=== PATIENT | female | born 2000 | race Caucasian/White ===

== ENCOUNTER 2022-10-29 20:08 | Inpatient (IN) | payer SELFPAY ==
[2022-10-29 20:43] VITALS: BP 134/78; PULSE 91; RESP 17; TEMP 37; O2SAT 99; BMI 29.6
--- NOTE | 2022-10-29 20:51 | ED_ITS ---
HPI - Psych General Chief Complaint: Psychiatric Symptoms <Alf Woodard MD - Last Filed: 10/31/22 06:35> Stated Complaint: CRISIS <Alf Woodard MD - Last Filed: 10/31/22 06:35> Time Seen by Provider: 10/29/22 20:40 <Alf Woodard MD - Last Filed: 10/31/22 06:35> Source: patient and other ([facility] assessment) <Alf Woodard MD - Last Filed: 10/31/22 06:35> Mode of arrival: ambulatory <Alf Woodard MD - Last Filed: 10/31/22 06:35> Limitations: other (Patient's paranoid) <Alf Woodard MD - Last Filed: 10/31/22 06:35> History of Present Illness HPI Narrative: 22-year-old female who was evaluated by [facility] as an outpatient for paranoid ideation and auditory hallucinations who was sent to the emergency department on a Section 12. The patient told me she was feeling sick but could not specify why. She told me she was not able to sleep. She told me that a man would not leave her alone in this man's name was Jian. In reviewing the [facility] assessment the patient be admitted to having auditory hallucinations telling her to ?, , ?. The patient appeared to be manic and was struggling to focus on the assessment at the time. The patient reported that she was stressed secondary to work issues. She reported being sad and wanting to cry. She reported that she was acting crazy. According to the assessment, mom reported patient having episodes of orlin not sleeping. The 1st episode was during a vacation with friends and a and then her boyfriend cheated on her in March of 2022. She apparently has been struggling since then screaming and yelling wanting to fight. The mother reported that on Friday, she sat on the floor and cried. She reported that mom's per hours are hurting her and she sent her mother over 107 text messages. <Alf Woodard MD - Last Filed: 10/31/22 06:35> Related Data Home Medications: Home Medications Medication Instructions Recorded Confirmed No Known Home Meds 10/29/22 10/29/22 <Alf Woodard MD - Last Filed: 10/31/22 06:35> Allergies/Adverse Reactions: Allergies Allergy/AdvReac Type Severity Reaction Status Date / Time No Known Allergies Allergy Verified 10/29/22 20:40 <Alf Woodard MD - Last Filed: 10/31/22 06:35> Review of Systems Review of Systems: Yes all other systems are reviewed and are negative <Alf Woodard MD - Last Filed: 10/31/22 06:35> [facility] Past Medical History [facility] Narrative: Past medical history: None. Past surgical history: None. Social history: Patient denies tobacco use. She states she occasionally drinks alcohol. She does smoke 1 marijuana joint daily. <Alf Woodard MD - Last Filed: 10/31/22 06:35> Social History Social History: Social History Household Members Other:: MOM/DAD AND 3 SIBLINGS Housing: House Do you presently have visiting nurse or other home services: No Patient Tobacco Use Status: Never used Tobacco Smoked in Last 30 Days: No Patient Interested in Nicotine Replacement: No Use of substances other than those prescribed or required for medical reasons: Yes Substance Use Type: Marijuana Substance Use Frequency: Daily Last Used Substance: Days (ago) Currently Displaying Signs/Symptoms of Drug Intoxication Withdrawal: No Any prior treatment program specific to substance use: Yes Have you been hit, kicked, punched, or otherwise hurt by someone within the past year? If so, by whom?: No Do you feel safe in your current relationship?: No Current Relationship Is there a partner from a previous relationship who is making you feel unsafe now?: No Are you made to feel afraid or neglected: No Advance Directives: No Advance Directives Information Provided: No Do you have thoughts of harming others: None Do you have a plan to hurt others: No Plan Recently lost weight without trying: No Eating poorly because of decreased appetite: No Nutrition Risks: No Nutritional Risk Patient : No : No Poor oral hygiene: No <Alf Woodard MD - Last Filed: 10/31/22 06:35> Physical Exam Vital Signs: Vital Signs: Last Vital Signs Temp 97.8 F 10/30/22 20:49 Pulse 75 10/30/22 20:49 Resp 16 10/30/22 17:21 BP 110/69 10/30/22 20:49 Pulse Ox 100 10/30/22 20:49 O2 Del Method 10/30/22 20:49 BMI result Body Mass Index 29.6 <Alf Woodard MD - Last Filed: 10/31/22 06:35> Vital Signs: Last Vital Signs Temp 97.8 F 10/30/22 20:49 Pulse 75 10/30/22 20:49 Resp 16 10/30/22 17:21 BP 110/69 10/30/22 20:49 Pulse Ox 100 10/30/22 20:49 O2 Del Method 10/30/22 20:49 BMI result Body Mass Index 29.6 <Radha Villegas MD - Last Filed: 10/30/22 12:25> Const: Other: Awake, alert, female patient, she appears anxious, she is tearful, she told me that she is feeling like she is crazy <Alf Woodard MD - Last Filed: 10/31/22 06:35> HEENT: Head: Yes normal to inspection, Yes normocephalic and Yes atraumatic <Alf Woodard MD - Last Filed: 10/31/22 06:35> Ears: external ears normal <Alf Woodard MD - Last Filed: 10/31/22 06:35> General nose exam: Normal external nose present <Alf Woodard MD - Last Filed: 10/31/22 06:35> Face and sinus: Yes normal facial exam <Alf Woodard MD - Last Filed: 10/31/22 06:35> Mouth: Normal oral and palatal mucosa present <Alf Woodard MD - Last Filed: 10/31/22 06:35> Throat: Yes posterior oropharynx normal <Alf Woodard MD - Last Filed: 10/31/22 06:35> Eyes: General: appearance normal, both eyes and all related structures <Alf Woodard MD - Last Filed: 10/31/22 06:35> Pupils: Equal, round and reactive pupils present <Alf Woodard MD - Last Filed: 10/31/22 06:35> Neck: Neck: Yes normal visual inspection, Yes no lymphadenopathy, Yes trachea midline and Yes supple <Alf Woodard MD - Last Filed: 10/31/22 06:35> Chest: Chest palpation & inspection: normal inspection of the chest and normal palpation of entire chest wall <Alf Woodard MD - Last Filed: 10/31/22 06:35> Resp: Effort & Inspection: normal respiratory effort and able to speak in complete sentences <Alf Woodard MD - Last Filed: 10/31/22 06:35> Auscultation: clear to auscultation bilaterally <Alf Woodard MD - Last Filed: 10/31/22 06:35> Cardio: Rate: regular rate <Alf Woodard MD - Last Filed: 10/31/22 06:35> Rhythm: regular rhythm <Alf Woodard MD - Last Filed: 10/31/22 06:35> Heart sounds: S1 normal heart sound present, S2 normal heart sound present and no murmurs <Alf Woodard MD - Last Filed: 10/31/22 06:35> GI: Inspection: Yes normal to inspection <Alf Woodard MD - Last Filed: 10/31/22 06:35> Palpation (GI): Soft to palpation, nontender and no guarding <Alf Woodard MD - Last Filed: 10/31/22 06:35> Auscultation: normal bowel sounds <MD Andre Garcia Last Filed: 10/31/22 06:35> : General: Yes no CVA tenderness <MD Andre Garcia Last Filed: 10/31/22 06:35> Back/Spine/Pelvis: Back: no CVA tenderness <Alf Woodard MD - Last Filed: 10/31/22 06:35> Skin: General skin exam: no rashes or lesions noted <MD Andre Garcia Last Filed: 10/31/22 06:35> Neuro: Cranial nerves: Yes CN's II-XII intact bilaterally and Yes Equal, round and reactive pupils present <Alf Woodard MD - Last Filed: 10/31/22 06:35> Cognition (Neuro): normal cognition <Alf Woodard MD - Last Filed: 10/31/22 06:35> Motor exam (neuro): 5/5 motor strength present throughout <Alf Woodard MD - Last Filed: 10/31/22 06:35> Extrem: General: Yes normal to inspection <Alf Woodard MD - Last Filed: 10/31/22 06:35> Psych: Appearance: grossly normal <Alf Woodard MD - Last Filed: 10/31/22 06:35> Speech and movement: Normal speech and movement present <Alf Woodard MD - Last Filed: 10/31/22 06:35> Affect: Sad affect present and Anxious affect present <Alf Woodard MD - Last Filed: 10/31/22 06:35> Attitude: cooperative <Alf Woodard MD - Last Filed: 10/31/22 06:35> Thought content: suicidality, no homicidality and Hallucination(s) present auditory (Reported but states not currently having auditory hallucinations) <Alf Woodard MD - Last Filed: 10/31/22 06:35> Course Course Course Narrative: 22-year-old female who was sent to the emergency department on a Section 12 after being evaluated as an outpatient by [facility]. Patient reported having command auditory hallucination, being sad and depressed, not eating, not sleeping. Parents reported that the patient has not been well since March of 2022 when she broke up with her boyfriend her cheated on her. Since that time she has had episodes of orlin. Over the past 3 days the patient has not been sleeping and not been eating, she has been crying, she has been manic and is sent her mother over 107 text messages. The patient did appear to be anxious and sad, she was tearful when I evaluated her. I did order laboratory evaluation on the patient. The patient will be treated with Ativan 1 mg orally and Zyprexa 10 mg orally try to help her get some sleep. The patient is on a bed search and she will be placed and physician observation until an appropriate disposition can be determined. <Alf Woodard MD - Last Filed: 10/31/22 0 6:35> Reevaluation(s) Reevaluation #1: Continue physician observation, patient is bed search, patient did require medication restrained and on review vital signs is otherwise stable. <Radha Villegas MD - Last Filed: 10/30/22 12:25> Time: 12:24 <Radha Villegas MD - Last Filed: 10/30/22 12:25> Medications Administered Generic Name Dose Route Start Last Admin Trade Name Freq PRN Reason Stop Dose Admin Hydroxyzine HCl 25 mg 10/30/22 14:33 10/30/22 20:08 Hydroxyzine Hcl 25 Mg Tablet PO 25 mg Q6H PRN Administration Anxiety Trazodone HCl 50 mg 10/30/22 14:33 10/30/22 22:08 Trazodone Hcl 50 Mg Tablet PO 50 mg BEDTIME PRN Administration Insomnia Discontinued Medications Generic Name Dose Route Start Last Admin Trade Name Freq PRN Reason Stop Dose Admin Lorazepam 1 mg 10/29/22 20:52 10/29/22 21:11 Lorazepam 1 Mg Tablet PO 10/29/22 20:53 1 mg ONCE STA Administration Olanzapine 10 mg 10/29/22 22:04 10/29/22 22:07 Olanzapine 10 Mg Tablet PO 10/29/22 22:05 10 mg ONCE STA Administration Olanzapine 10 mg 10/30/22 00:14 10/30/22 00:20 Olanzapine 10 Mg Vial IM 10/30/22 00:15 10 mg STAT STA Administration <Alf Woodard MD - Last Filed: 10/31/22 06:35> Medications Administered Generic Name Dose Route Start Last Admin Trade Name Freq PRN Reason Stop Dose Admin Hydroxyzine HCl 25 mg 10/30/22 14:33 10/30/22 20:08 Hydroxyzine Hcl 25 Mg Tablet PO 25 mg Q6H PRN Administration Anxiety Trazodone HCl 50 mg 10/30/22 14:33 10/30/22 22:08 Trazodone Hcl 50 Mg Tablet PO 50 mg BEDTIME PRN Administration Insomnia Discontinued Medications Generic Name Dose Route Start Last Admin Trade Name Freq PRN Reason Stop Dose Admin Lorazepam 1 mg 10/29/22 20:52 10/29/22 21:11 Lorazepam 1 Mg Tablet PO 10/29/22 20:53 1 mg ONCE STA Administration Olanzapine 10 mg 10/29/22 22:04 10/29/22 22:07 Olanzapine 10 Mg Tablet PO 10/29/22 22:05 10 mg ONCE STA Administration Olanzapine 10 mg 10/30/22 00:14 10/30/22 00:20 Olanzapine 10 Mg Vial IM 10/30/22 00:15 10 mg STAT STA Administration <Radha Villegas MD - Last Filed: 10/30/22 12:25> Medical Decision Making Lab Data Result Diagrams: : 10/29/22 23:29 10/29/22 23:29 <Alf Woodard MD - Last Filed: 10/31/22 06:35> Labs: Lab Results 10/29/22 10/29/22 10/29/22 Range/Units 20:45 23:29 23:29 WBC 5.0 (4.8-10.8) X10*3/uL RBC 4.64 (4.20-5.50) X10*6/uL Hgb 13.7 (12.0-16.0) g/dl Hct 39.4 (37.0-47.0) % MCV 84.9 (80.0-98.0) fL MCH 29.5 (27.0-33.0) pg MCHC 34.8 (31.0-35.0) g/dl RDW 12.2 (11.0-16.0) % Plt Count 261 (160-400) X10*3/uL MPV 10.3 (9.4-12.3) fL Immature Gran % (Auto) 0.2 (0.0-0.4) % Neut % (Auto) 51.6 (45-73) % Lymph % (Auto) 39.2 (20-40) % Sullivan % (Auto) 8.4 (2-11) % Eos % (Auto) 0.4 (0-4) % Baso % (Auto) 0.2 (0-2) % Lymph # (Auto) 2.0 (1.2-4.9) X10*3/uL [place] # (Auto) 0.4 (0.1-1.2) X10*3/uL Eos # (Auto) 0.0 (0.0-0.4) X10*3/uL Baso # (Auto) 0.0 (0.0-0.2) X10*3/uL Abs Immat Gran (auto) 0.01 (0.00-0.03) X10*3/uL Absolute Neuts (auto) 2.6 (2.0-8.3) x10*3/uL Absolute Nucleated RBC 0.000 (0.0-0.012) X10*3/uL Nucleated RBC % (auto) 0.0 (0.0-0.2) /100WBC Smear Tech's Comments VERIFIED Sodium 140 (135-145) mmol/L Potassium 3.9 (3.3-5.1) mmol/L Chloride 108 (96-108) mmol/L Carbon Dioxide 21 L (22-29) mmol/L Anion Gap 15 (12-20) BUN 10 (9-16) mg/dL Creatinine 0.74 (0.5-1.4) mg/dL Estim Creat Clear Calc 126.2 Estimated GFR > 60 Random Glucose 99 (60-115) mg/dL Calcium 9.2 (8.4-10.2) mg/dL Total Bilirubin 0.4 (0.0-1.0) mg/dL AST 29 (5-31) U/L ALT 25 (0-31) U/L Alkaline Phosphatase 65 (39-117) U/L Total Protein 7.8 (6.5-8.0) g/dL Albumin 4.7 (3.5-5.0) g/dL TSH (0.32-4.0) uIU/mL Urine Color Urine Appearance Urine pH (5.0-9.0) Ur Specific [place] (1.005-1.025) Urine Protein (Neg-Trace) mg/dL Urine Glucose (UA) (Negative) mg/dL Urine Ketones (Negative) mg/dL Urine Blood (Negative) Urine Nitrite (Negative) Ur Leukocyte Esterase (Negative) Urine RBC (0-2) /HPF Urine WBC (0-5) /HPF Ur Squamous Epith Cells (0-2) /HPF Urine Bacteria (None Seen) Hyaline Casts (0-2) /LPF Urine Test (NEGATIVE) Salicylates < 5.0 L (15-30) mg/dL Urine Opiates Screen (Not Detect) Urine Fentanyl Screen (Not Detect) Acetaminophen < 1 (<30) mcg/mL Ur Barbiturates Screen (Not Detect) Ur Phencyclidine Scrn (Not Detect) Ur Amphetamines Screen (Not Detect) U Benzodiazepines Scrn (Not Detect) Urine Cocaine Screen (Not Detect) U Marijuana (THC) Screen (Not Detect) Ethyl Alcohol mg/dL COVID-19 ([facility]) Negative (Negative) COVID-19 Clin Com See Note 10/29/22 10/29/22 10/29/22 Range/Units 23:29 23:29 23:36 WBC (4.8-10.8) X10*3/uL RBC (4.20-5.50) X10*6/uL Hgb (12.0-16.0) g/dl Hct (37.0-47.0) % MCV (80.0-98.0) fL MCH (27.0-33.0) pg MCHC (31.0-35.0) g/dl RDW (11.0-16.0) % Plt Count (160-400) X10*3/uL MPV (9.4-12.3) fL Immature Gran % (Auto) (0.0-0.4) % Neut % (Auto) (45-73) % Lymph % (Auto) (20-40) % [place] % (Auto) (2-11) % Eos % (Auto) (0-4) % Baso % (Auto) (0-2) % Lymph # (Auto) (1.2-4.9) X10*3/uL [place] # (Auto) (0.1-1.2) X10*3/uL Eos # (Auto) (0.0-0.4) X10*3/uL Baso # (Auto) (0.0-0.2) X10*3/uL Abs Immat Gran (auto) (0.00-0.03) X10*3/uL Absolute Neuts (auto) (2.0-8.3) x10*3/uL Absolute Nucleated RBC (0.0-0.012) X10*3/uL Nucleated RBC % (auto) (0.0-0.2) /100WBC Smear Tech's Comments Sodium (135-145) mmol/L Potassium (3.3-5.1) mmol/L Chloride (96-108) mmol/L Carbon Dioxide (22-29) mmol/L Anion Gap (12-20) BUN (9-16) mg/dL Creatinine (0.5-1.4) mg/dL Estim Creat Clear Calc Estimated GFR Random Glucose (60-115) mg/dL Calcium (8.4-10.2) mg/dL Total Bilirubin (0.0-1.0) mg/dL AST (5-31) U/L ALT (0-31) U/L Alkaline Phosphatase (39-117) U/L Total Protein (6.5-8.0) g/dL Albumin (3.5-5.0) g/dL TSH 0.91 (0.32-4.0) uIU/mL Urine Color Yellow Urine Appearance Clear Urine pH 7.0 (5.0-9.0) Ur Specific [place] 1.010 (1.005-1.025) Urine Protein Negative (Neg-Trace) mg/dL Urine Glucose (UA) Negative (Negative) mg/dL Urine Ketones 15 (Negative) mg/dL Urine Blood Moderate (2+) H (Negative) Urine Nitrite Negative (Negative) Ur Leukocyte Esterase Moderate (2+) H (Negative) Urine RBC 0-2 (0-2) /HPF Urine WBC 11-20 H (0-5) /HPF Ur Squamous Epith Cells 3-5 (0-2) /HPF Urine Bacteria Trace (None Seen) Hyaline Casts 0-2 (0-2) /LPF Urine Test (NEGATIVE) Salicylates (15-30) mg/dL Urine Opiates Screen (Not Detect) Urine Fentanyl Screen (Not Detect) Acetaminophen (<30) mcg/mL Ur Barbiturates Screen (Not Detect) Ur Phencyclidine Scrn (Not Detect) Ur Amphetamines Screen (Not Detect) U Benzodiazepines Scrn (Not Detect) Urine Cocaine Screen (Not Detect) U Marijuana (THC) Screen (Not Detect) Ethyl Alcohol < 10 mg/dL COVID-19 ([facility]) (Negative) COVID-19 Clin Com 10/29/22 10/29/22 Range/Units 23:36 23:36 WBC (4.8-10.8) X10*3/uL RBC (4.20-5.50) X10*6/uL Hgb (12.0-16.0) g/dl Hct (37.0-47.0) % MCV (80.0-98.0) fL MCH (27.0-33.0) pg MCHC (31.0-35.0) g/dl RDW (11.0-16.0) % Plt Count (160-400) X10*3/uL MPV (9.4-12.3) fL Immature Gran % (Auto) (0.0-0.4) % Neut % (Auto) (45-73) % Lymph % (Auto) (20-40) % [place] % (Auto) (2-11) % Eos % (Auto) (0-4) % Baso % (Auto) (0-2) % Lymph # (Auto) (1.2-4.9) X10*3/uL [place] # (Auto) (0.1-1.2) X10*3/uL Eos # (Auto) (0.0-0.4) X10*3/uL Baso # (Auto) (0.0-0.2) X10*3/uL Abs Immat Gran (auto) (0.00-0.03) X10*3/uL Absolute Neuts (auto) (2.0-8.3) x10*3/uL Absolute Nucleated RBC (0.0-0.012) X10*3/uL Nucleated RBC % (auto) (0.0-0.2) /100WBC Smear Tech's Comments Sodium (135-145) mmol/L Potassium (3.3-5.1) mmol/L Chloride (96-108) mmol/L Carbon Dioxide (22-29) mmol/L Anion Gap (12-20) BUN (9-16) mg/dL Creatinine (0.5-1.4) mg/dL Estim Creat Clear Calc Estimated GFR Random Glucose (60-115) mg/dL Calcium (8.4-10.2) mg/dL Total Bilirubin (0.0-1.0) mg/dL AST (5-31) U/L ALT (0-31) U/L Alkaline Phosphatase (39-117) U/L Total Protein (6.5-8.0) g/dL Albumin (3.5-5.0) g/dL TSH (0.32-4.0) uIU/mL Urine Color Urine Appearance Urine pH (5.0-9.0) Ur Specific [place] (1.005-1.025) Urine Protein (Neg-Trace) mg/dL Urine Glucose (UA) (Negative) mg/dL Urine Ketones (Negative) mg/dL Urine Blood (Negative) Urine Nitrite (Negative) Ur Leukocyte Esterase (Negative) Urine RBC (0-2) /HPF Urine WBC (0-5) /HPF Ur Squamous Epith Cells (0-2) /HPF Urine Bacteria (None Seen) Hyaline Casts (0-2) /LPF Urine Test NEGATIVE (NEGATIVE) Salicylates (15-30) mg/dL Urine Opiates Screen Not Detected (Not Detect) Urine Fentanyl Screen Not Detected (Not Detect) Acetaminophen (<30) mcg/mL Ur Barbiturates Screen Not Detected (Not Detect) Ur Phencyclidine Scrn Not Detected (Not Detect) Ur Amphetamines Screen Not Detected (Not Detect) U Benzodiazepines Scrn Not Detected (Not Detect) Urine Cocaine Screen Not Detected (Not Detect) U Marijuana (THC) Screen POSITIVE H (Not Detect) Ethyl Alcohol mg/dL COVID-19 ([facility]) (Negative) COVID-19 Clin Com <Alf Woodard MD - Last Filed: 10/31/22 06:35> Lab Results 10/29/22 10/29/22 10/29/22 Range/Units 20:45 23:29 23:29 WBC 5.0 (4.8-10.8) X10*3/uL RBC 4.64 (4.20-5.50) X10*6/uL Hgb 13.7 (12.0-16.0) g/dl Hct 39.4 (37.0-47.0) % MCV 84.9 (80.0-98.0) fL MCH 29.5 (27.0-33.0) pg MCHC 34.8 (31.0-35.0) g/dl RDW 12.2 (11.0-16.0) % Plt Count 261 (160-400) X10*3/uL MPV 10.3 (9.4-12.3) fL Immature Gran % (Auto) 0.2 (0.0-0.4) % Neut % (Auto) 51.6 (45-73) % Lymph % (Auto) 39.2 (20-40) % [place] % (Auto) 8.4 (2-11) % Eos % (Auto) 0.4 (0-4) % Baso % (Auto) 0.2 (0-2) % Lymph # (Auto) 2.0 (1.2-4.9) X10*3/uL [place] # (Auto) 0.4 (0.1-1.2) X10*3/uL Eos # (Auto) 0.0 (0.0-0.4) X10*3/uL Baso # (Auto) 0.0 (0.0-0.2) X10*3/uL Abs Immat Gran (auto) 0.01 (0.00-0.03) X10*3/uL Absolute Neuts (auto) 2.6 (2.0-8.3) x10*3/uL Absolute Nucleated RBC 0.000 (0.0-0.012) X10*3/uL Nucleated RBC % (auto) 0.0 (0.0-0.2) /100WBC Smear Tech's Comments VERIFIED Sodium 140 (135-145) mmol/L Potassium 3.9 (3.3-5.1) mmol/L Chloride 108 (96-108) mmol/L Carbon Dioxide 21 L (22-29) mmol/L Anion Gap 15 (12-20) BUN 10 (9-16) mg/dL Creatinine 0.74 (0.5-1.4) mg/dL Estim Creat Clear Calc 126.2 Estimated GFR > 60 Random Glucose 99 (60-115) mg/dL Calcium 9.2 (8.4-10.2) mg/dL Total Bilirubin 0.4 (0.0-1.0) mg/dL AST 29 (5-31) U/L ALT 25 (0-31) U/L Alkaline Phosphatase 65 (39-117) U/L Total Protein 7.8 (6.5-8.0) g/dL Albumin 4.7 (3.5-5.0) g/dL TSH (0.32-4.0) uIU/mL Urine Color Urine Appearance Urine pH (5.0-9.0) Ur Specific [place] (1.005-1.025) Urine Protein (Neg-Trace) mg/dL Urine Glucose (UA) (Negative) mg/dL Urine Ketones (Negative) mg/dL Urine Blood (Negative) Urine Nitrite (Negative) Ur Leukocyte Esterase (Negative) Urine RBC (0-2) /HPF Urine WBC (0-5) /HPF Ur Squamous Epith Cells (0-2) /HPF Urine Bacteria (None Seen) Hyaline Casts (0-2) /LPF Urine Test (NEGATIVE) Salicylates < 5.0 L (15-30) mg/dL Urine Opiates Screen (Not Detect) Urine Fentanyl Screen (Not Detect) Acetaminophen < 1 (<30) mcg/mL Ur Barbiturates Screen (Not Detect) Ur Phencyclidine Scrn (Not Detect) Ur Amphetamines Screen (Not Detect) U Benzodiazepines Scrn (Not Detect) Urine Cocaine Screen (Not Detect) U Marijuana (THC) Screen (Not Detect) Ethyl Alcohol mg/dL COVID-19 ([facility]) Negative (Negative) COVID-19 Clin Com See Note 10/29/22 10/29/22 10/29/22 Range/Units 23:29 23:29 23:36 WBC (4.8-10.8) X10*3/uL RBC (4.20-5.50) X10*6/uL Hgb (12.0-16.0) g/dl Hct (37.0-47.0) % MCV (80.0-98.0) fL MCH (27.0-33.0) pg MCHC (31.0-35.0) g/dl RDW (11.0-16.0) % Plt Count (160-400) X10*3/uL MPV (9.4-12.3) fL Immature Gran % (Auto) (0.0-0.4) % Neut % (Auto) (45-73) % Lymph % (Auto) (20-40) % [place] % (Auto) (2-11) % Eos % (Auto) (0-4) % Baso % (Auto) (0-2) % Lymph # (Auto) (1.2-4.9) X10*3/uL [place] # (Auto) (0.1-1.2) X10*3/uL Eos # (Auto) (0.0-0.4) X10*3/uL Baso # (Auto) (0.0-0.2) X10*3/uL Abs Immat Gran (auto) (0.00-0.03) X10*3/uL Absolute Neuts (auto) (2.0-8.3) x10*3/uL Absolute Nucleated RBC (0.0-0.012) X10*3/uL Nucleated RBC % (auto) (0.0-0.2) /100WBC Smear Tech's Comments Sodium (135-145) mmol/L Potassium (3.3-5.1) mmol/L Chloride (96-108) mmol/L Carbon Dioxide (22-29) mmol/L Anion Gap (12-20) BUN (9-16) mg/dL Creatinine (0.5-1.4) mg/dL Estim Creat Clear Calc Estimated GFR Random Glucose (60-115) mg/dL Calcium (8.4-10.2) mg/dL Total Bilirubin (0.0-1.0) mg/dL AST (5-31) U/L ALT (0-31) U/L Alkaline Phosphatase (39-117) U/L Total Protein (6.5-8.0) g/dL Albumin (3.5-5.0) g/dL TSH 0.91 (0.32-4.0) uIU/mL Urine Color Yellow Urine Appearance Clear Urine pH 7.0 (5.0-9.0) Ur Specific [place] 1.010 (1.005-1.025) Urine Protein Negative (Neg-Trace) mg/dL Urine Glucose (UA) Negative (Negative) mg/dL Urine Ketones 15 (Negative) mg/dL Urine Blood Moderate (2+) H (Negative) Urine Nitrite Negative (Negative) Ur Leukocyte Esterase Moderate (2+) H (Negative) Urine RBC 0-2 (0-2) /HPF Urine WBC 11-20 H (0-5) /HPF Ur Squamous Epith Cells 3-5 (0-2) /HPF Urine Bacteria Trace (None Seen) Hyaline Casts 0-2 (0-2) /LPF Urine Test (NEGATIVE) Salicylates (15-30) mg/dL Urine Opiates Screen (Not Detect) Urine Fentanyl Screen (Not Detect) Acetaminophen (<30) mcg/mL Ur Barbiturates Screen (Not Detect) Ur Phencyclidine Scrn (Not Detect) Ur Amphetamines Screen (Not Detect) U Benzodiazepines Scrn (Not Detect) Urine Cocaine Screen (Not Detect) U Marijuana (THC) Screen (Not Detect) Ethyl Alcohol < 10 mg/dL COVID-19 ([facility]) (Negative) COVID-19 Clin Com 10/29/22 10/29/22 Range/Units 23:36 23:36 WBC (4.8-10.8) X10*3/uL RBC (4.20-5.50) X10*6/uL Hgb (12.0-16.0) g/dl Hct (37.0-47.0) % MCV (80.0-98.0) fL MCH (27.0-33.0) pg MCHC (31.0-35.0) g/dl RDW (11.0-16.0) % Plt Count (160-400) X10*3/uL MPV (9.4-12.3) fL Immature Gran % (Auto) (0.0-0.4) % Neut % (Auto) (45-73) % Lymph % (Auto) (20-40) % [place] % (Auto) (2-11) % Eos % (Auto) (0-4) % Baso % (Auto) (0-2) % Lymph # (Auto) (1.2-4.9) X10*3/uL [place] # (Auto) (0.1-1.2) X10*3/uL Eos # (Auto) (0.0-0.4) X10*3/uL Baso # (Auto) (0.0-0.2) X10*3/uL Abs Immat Gran (auto) (0.00-0.03) X10*3/uL Absolute Neuts (auto) (2.0-8.3) x10*3/uL Absolute Nucleated RBC (0.0-0.012) X10*3/uL Nucleated RBC % (auto) (0.0-0.2) /100WBC Smear Tech's Comments Sodium (135-145) mmol/L Potassium (3.3-5.1) mmol/L Chloride (96-108) mmol/L Carbon Dioxide (22-29) mmol/L Anion Gap (12-20) BUN (9-16) mg/dL Creatinine (0.5-1.4) mg/dL Estim Creat Clear Calc Estimated GFR Random Glucose (60-115) mg/dL Calcium (8.4-10.2) mg/dL Total Bilirubin (0.0-1.0) mg/dL AST (5-31) U/L ALT (0-31) U/L Alkaline Phosphatase (39-117) U/L Total Protein (6.5-8.0) g/dL Albumin (3.5-5.0) g/dL TSH (0.32-4.0) uIU/mL Urine Color Urine Appearance Urine pH (5.0-9.0) Ur Specific [place] (1.005-1.025) Urine Protein (Neg-Trace) mg/dL Urine Glucose (UA) (Negative) mg/dL Urine Ketones (Negative) mg/dL Urine Blood (Negative) Urine Nitrite (Negative) Ur Leukocyte Esterase (Negative) Urine RBC (0-2) /HPF Urine WBC (0-5) /HPF Ur Squamous Epith Cells (0-2) /HPF Urine Bacteria (None Seen) Hyaline Casts (0-2) /LPF Urine Test NEGATIVE (NEGATIVE) Salicylates (15-30) mg/dL Urine Opiates Screen Not Detected (Not Detect) Urine Fentanyl Screen Not Detected (Not Detect) Acetaminophen (<30) mcg/mL Ur Barbiturates Screen Not Detected (Not Detect) Ur Phencyclidine Scrn Not Detected (Not Detect) Ur Amphetamines Screen Not Detected (Not Detect) U Benzodiazepines Scrn Not Detected (Not Detect) Urine Cocaine Screen Not Detected (Not Detect) U Marijuana (THC) Screen POSITIVE H (Not Detect) Ethyl Alcohol mg/dL COVID-19 ([facility]) (Negative) COVID-19 Clin Com <Radha Villegas MD - Last Filed: 10/30/22 12:25> Discharge Plan Discharge Clinical Impression: Acute psychosis <Alf Woodard MD - Last Filed: 10/31/22 06:35> Patient Disposition: Admitted As Inpatient <Alf Woodard MD - Last Filed: 10/31/22 06:35> Interventions: Admission Worksheet (ED) Last Done: 10/30/22 14:52 <Alf Woodard MD - Last Filed: 10/31/22 06:35> Discharge Date/Time: 10/30/22 15:14 <Alf Woodard MD - Last Filed: 10/31/22 06:35>
[2022-10-29 21:10] LABS: COVID-19 Test Negative (Negative); IDNOW Serial# 16C4AD1C
[2022-10-29] MEDS: LORazepam 1 MG TABLET PO (21:11)
--- NOTE | 2022-10-29 21:34 | MHC.EDTECH ---
PATIENT IS TEARFUL AND CAN NOT GIVE A URINE SAMPLE AND HAS REFUSED LABS AT THIS TIME BUT AGREED TO LET THIS STAFF TRY WHEN SHE WAKES UP. PT REPORTS I HAVE NOT BEEN ABLE TO SLEEP FOR A LONG TIME I JUST WANNA SLEEP . THIS STAFF WILL TRY LABS AGAIN ONCE PATIENT CALMS DOWN.
[2022-10-29] MEDS: OLANZapine 10 MG TABLET PO (22:07)
[2022-10-29 23:44] LABS: Basophils Percent Auto 0.2 % (0-2); Eosinophils Percent Auto 0.4 % (0-4); Hematocrit 39.4 % (37.0-47.0); Hemoglobin 13.7 g/dl (12.0-16.0); Imm Gran Abs Auto 0.01 X10*3/uL (0.00-0.03); Imm Gran Pct Auto 0.2 % (0.0-0.4); Lymphocytes Percent Auto 39.2 % (20-40); MANUAL DIFF FLAG SCAN; Mean Corpuscular HGB Conc 34.8 g/dl (31.0-35.0); Mean Corpuscular Hemoglobin 29.5 pg (27.0-33.0); Mean Corpuscular Volume 84.9 fL (80.0-98.0); Mean Platelet Volume 10.3 fL (9.4-12.3); Monocytes Absolute Auto 0.4 X10*3/uL (0.1-1.2); Monocytes Percent Auto 8.4 % (2-11); Neutrophils Absolute Auto 2.6 x10*3/uL (2.0-8.3); Neutrophils Percent Auto 51.6 % (45-73); Platelet Count 261 X10*3/uL (160-400); Red Blood Count 4.64 X10*6/uL (4.20-5.50); Red Cell Distribution Width 12.2 % (11.0-16.0); SCAN SMEAR FLAG 1
[2022-10-29 23:45] LABS: Appearance Urine Clear; Color Urine Yellow; Glucose Urine UA Negative (Negative); Leukocyte Esterase Urine Moderate (2+) (Negative); Nitrite Urine Negative (Negative); UMIC TRIGGER UA YES; Urine Blood Moderate (2+) (Negative); Urine Ketones 15 mg/dL (Negative); Urine Protein Negative (Neg-Trace)
[2022-10-29 23:48] LABS: UPreg QC Valid YES; Urine Pregnancy NEGATIVE (NEGATIVE)
[2022-10-29 23:52] LABS: Hyaline Casts Urine 0-2 /LPF (0-2); RBC Urine 0-2 /HPF (0-2)
[2022-10-29 23:53] LABS: Bacteria Urine Trace (None Seen)
[2022-10-30] VITALS (10 sets, daily range): BP systolic 95–116; BP diastolic 55–72; PULSE 16–104; RESP 12–17; TEMP 36.6–36.9; O2SAT 98–100
[2022-10-30 00:06] LABS: Amphetamine Screen Urine Not Detected (Not Detect); Barbiturates, Urine Not Detected (Not Detect); Benzodiazepines Screen Urine Not Detected (Not Detect); Cannabinoid Screen Urine POSITIVE (Not Detect); Cocaine Screen Urine Not Detected (Not Detect); Fentanyl, urine Not Detected (Not Detect); Opiate Screen Urine Not Detected (Not Detect); Phencyclidine Screen Urine Not Detected (Not Detect)
[2022-10-30 00:07] LABS: SLIDE REVIEW VERIFIED
[2022-10-30 00:17] LABS: Ethanol < 10 mg/dL
[2022-10-30] MEDS: OLANZapine 10 MG VIAL IM (00:20)
[2022-10-30 00:22] LABS: Acetaminophen LAB < 1 mcg/mL (<30); Alanine Aminotransferase 25 U/L (0-31); Albumin Level 4.7 g/dL (3.5-5.0); Alkaline Phosphatase 65 U/L (39-117); Anion Gap 15 (12-20); Aspartate Amino Transferase 29 U/L (5-31); Blood Urea Nitrogen 10 mg/dL (9-16); Calcium 9.2 mg/dL (8.4-10.2); Carbon Dioxide 21 mmol/L (22-29); Chloride 108 mmol/L (96-108); Creatinine Clr Calc Pharmacy 126.2; Estimated Glomerular Filt Rate > 60; Glucose Random 99 mg/dL (60-115); Potassium 3.9 mmol/L (3.3-5.1); Salicylate < 5.0 mg/dL (15-30); Sodium 140 mmol/L (135-145); Total Protein 7.8 g/dL (6.5-8.0)
[2022-10-30 00:41] LABS: TSH reflex Free T4 0.91 uIU/mL (0.32-4.0)
[2022-10-30 01:17] LABS: Bilirubin Total 0.4 mg/dL (0.0-1.0)
--- NOTE | 2022-10-30 01:49 | PC.NURSE ---
Patient is restless, reporting racing thought, difficulty in falling sleep, administered Ativan 1 mg po at 2110, Olanzapine 10 mg PO, and Olanzapine 10 mg IM at 19 as ordered with minimal effect, patient is still awake tossing in her bed, intermittently crying, patient is monitored on 1:1 for safety, VSS, will continue to monitor.
--- NOTE | 2022-10-30 06:50 | PC.NURSE ---
Patient had hard time falling sleep, patient has been sleeping since 2 am, no distress observed/reported, patient exhibiting paranoia, delusional, internally responding to stimuli, actively self dialoguing, behavior non concerning at this time, disposition per [facility] is section 12 inpatient bed search from the community, patient is pre-accepted either M3 or M5, VSS, will continue to monitor.
--- NOTE | 2022-10-30 14:17 | PC.NURSE ---
Nurse to nurse given to m3 staff
--- OUTSIDE RECORDS SUMMARY | 2022-10-30 14:50 | XMS_ITS ---
:2000 Author Organization [facility] Address [address] [place] [id number] Care Team Providers Name Role Phone LUISA RAMOS Unavailable Unavailable PROBLEMS Type Condition ICD9-CM Code [id number] Code Onset Condition SNO MED Code Dates Status Problem Vitamin D E55.9 Active [id number] deficiency Problem Attention-deficit F90.9 Active 40 [id number] hyperactivity disorder, unspecified type ALLERGIES No Known Allergies ENCOUNTERS Encounter Location Date Diagnosis [address] Jul, Adult [facility] [place], [place] examination Z00. 00 ; [id number] Screening for li pid disorders Z13.22 0 ; Screening for th yroid disorder Z13.29 ; Vitamin D deficiency E55 .9 and Diabetes mellitu s screening Z13.[address] May, Sore thro at J02.[address] [place] [address] IMMUNIZATIONS No Known Immunizations SOCIAL HISTORY Qualifiers Date Never Smoker REASON FOR REFERRAL FUNCTIONAL STATUS PLAN OF CARE Activity Details Future Appointment Provider Name:LUISA RAMOS, 2023-07-24 09:30:00 AM, [address] [place], [id number], VITAL SIGNS Heart Rate 56 /min 2022-07-23 Heart Rate 92 /min 2022-06-12 Weight 190.0 lbs 2022-07-23 Weight 191.0 lbs 2022-06-12 BMI 31.61 kg/m2 2022-07-23 BMI 31.78 kg/m2 2022-06-12 Height 65 in 2022-07-23 Height 65 in 2022-06-12 Oximetry 99 % 2022-07-23 Oximetry 99 % 2022-06-12 Blood pressure systolic 100 mm Hg 2022-07-23 Blood pressure diastolic 72 mm Hg 2022-07-23 MEDICATIONS No Known Medications PROCEDURES Procedure Date Ordered Result Body Site MONONUCLEAR CELL ANTIGEN June 12, 2022 STREP A ASSAY W/OPTIC June 12, 2022 NFCT DS VIR RESP RNA 4 TRGT June 12, 2022 RESULTS Name Result Date Reference Range LIPID PANEL, STANDARD 2022-07-23 CHOLESTEROL, TOTAL 127 <200 HDL CHOLESTEROL 54 > OR = 50 TRIGLYCERIDES 83 <150 LDL-CHOLESTEROL 56 CHOL/HDLC RATIO 2.4 <5.0 NON HDL CHOLESTEROL 73 <130 COMPREHENSIVE METABOLIC PANEL 2022-07-23 GLUCOSE 80 65-99 UREA NITROGEN (BUN) 9 7-25 CREATININE 0.72 0.50-0.96 EGFR 122 > OR = 60 BUN/CREATININE RATIO NOT APPLICABLE 6-22 SODIUM 138 135-146 POTASSIUM 4.0 3.5-5.3 CHLORIDE 106 98-110 CARBON DIOXIDE 21 20-32 CALCIUM 9.3 8.6-10.2 PROTEIN, TOTAL 6.9 6.1-8.1 ALBUMIN 4.0 3.6-5.1 GLOBULIN 2.9 1.9-3.7 ALBUMIN/GLOBULIN RATIO 1.4 1.0-2.5 BILIRUBIN, TOTAL 0.3 0.2-1.2 ALKALINE PHOSPHATASE 58 31-125 AST 14 10-30 ALT 8 6-29 CBC (INCLUDES DIFF/PLT) 2022-07-23 WHITE BLOOD CELL COUNT 5.5 3.8-10.8 RED BLOOD CELL COUNT 4.19 3.80-5.10 HEMOGLOBIN 12.8 11.7-15.5 HEMATOCRIT 37.8 35.0-45.0 MCV 90.2 80.0-100.0 MCH 30.5 27.0-33.0 MCHC 33.9 32.0-36.0 RDW 12.7 11.0-15.0 PLATELET COUNT 275 140-400 MPV 10.5 7.5-12.5 ABSOLUTE NEUTROPHILS 3515 [id number] ABSOLUTE LYMPHOCYTES [phone] ABSOLUTE MONOCYTES 396 200-950 ABSOLUTE EOSINOPHILS 88 15-500 ABSOLUTE BASOPHILS 39 0-200 NEUTROPHILS 63.9 LYMPHOCYTES 26.6 MONOCYTES 7.2 EOSINOPHILS 1.6 BASOPHILS 0.7 HEMOGLOBIN A1c 2022-07-23 HEMOGLOBIN A1c 4.7 <5.7 T4, FREE 2022-07-23 T4, FREE 1.3 0.8-1.8 TSH 2022-07-23 TSH 1.52 VITAMIN D,25-OH,TOTAL,IA 2022-07-23 VITAMIN D,25-OH,TOTAL,IA 24 30-100 REASON FOR VISIT pt here for CPE.. pt states she did not have labs and no concerns at this time, pt here for urgent visit pt c/o tonsil stones since yesterday, covid, mono, rapid strep done in office neg mono, neg rapid covid positive Insurance Providers [facility] Member Patient Patient Patient Patient Patient Subscriber Subscriber Subscriber Group Insurance Plan Plan Plan Plan ID Relationship Address Phone Name Date of ID Name Date of No Type Insurance Insurance Insurance Coverage to Subscriber Address Phone Name Dates Blue [employer] [phone] Blue [employer] self [place] [id number] and Blue [id number] and Blue [address]
--- OUTSIDE RECORDS SUMMARY | 2022-10-30 14:50 | XMS_ITS | Continuity of Care Document ---
:2000 Author Organization [facility] Address [address] [place] [id number]- Care Team Providers Name Role Phone Not on Staff, PCP Primary Care Physician Unavailable Encounter [facility] Date(s): 09/26/20 - 11/18/20 [facility] [address] [place] [id number] Attending Physician: Paty PEOPLES, Kevin Reddy Admitting Physician: Kevin Newman MD Referring Physician: Kizzy Riddle MD
--- OUTSIDE RECORDS SUMMARY | 2022-10-30 14:50 | XMS_ITS | Continuity of Care Document ---
:2000 Author Organization [facility] Address [address] [place] [id number] Care Team Providers Name Role Phone Not on Staff, PCP Primary Care Physician Unavailable Encounter [facility] Date(s): 10/19/20 - 11/18/20 [facility] [address] [place] [id number] Attending Physician: Roz Bond Admitting Physician: Roz Bond Referring Physician: Roz Bond
--- NOTE | 2022-10-30 17:45 | PC.ADMIT ---
Patient is a 22 y/o bilingual speaking female admitted from the [facility] on a CV at 1525. The pt was refereed after seeing the [facility] crisis team for auditory hallucinations telling her to ,, . The pt's mother reports that the pt hasn't slept in 36 hours, is hearing voices to hurt herself and has been acting manic. The reports that her racing thoughts keep her up at night . The pt has no prior hospitalizations or current mental health services and hasn't been on any medications. The pt's mood is sad and anxious, pt was visibly shaking her leg throughout the whole admission process. When asked about trauma hx the pt began crying and said she didn't want to talk about it. 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 She reports seeing shadows at night , but denied AH. Pt reports that she has crazy moments and then comes out of them not knowing what she did. Pt then feels bad and guilty. The pt has been calm and cooperative with admission, placed on 15 minute safety checks.
[2022-10-30] MEDS: hydrOXYzine HCL 25 MG TABLET PO (20:08)
[2022-10-30] MEDS: traZODone HCL 50 MG TABLET PO (22:08)
[2022-10-31] MEDS: guaiFENesin 100 MG/5 ML LIQUID PO (08:49)
[2022-10-31] MEDS: hydrOXYzine HCL 25 MG TABLET PO (08:49)
--- NOTE | 2022-10-31 10:30 | HO.PSYADMNOT ---
HPI Date of Service: 10/31/22 Chief Complaint: SI Sources of Information: patient interviewed, chart reviewed and crisis/core team assessment reviewed HPI Subjective Notes: Piper Warning (given and shows understanding) and Conditional Voluntary Narrative: Ms. Carey is a 22 year-old woman who was brought by parents to [facility] after patient presenting as suspicious, intrusive to family members, not sleeping, hyperverbal, hearing voices telling her to , , , suspicious of family members for the past 3 days and verbally abusive towards them which is not characteristic of her. In the ED, his utox was positive for cannabis. On the unit, this script writer met with patient and her parents. Pt presents as hyperverbal, at times laughing others crying. She reports she noticed something was off but states she does not remember all things she said and did to her family. Pt reports she felt like having a lot of energy. She states she also impulsively quit her job at [employer], which she states now in retrospect was not a good decision. Pt endorse poor concentration, lashing out on people and not having control over what she says. Pt's mother reports that pt was asking her to pray with her but then was very suspicious of her family and accused them of being the devil. Mother reports pt was yelling at parents and siblings, runing around the house, irritable when redirected or asked about her behavior. Today, Pt reports feeling worried about her mental health and states she is open to receive treatment. Pt reports hearing some noises, but also states it may be nothing I don't want people to think I am crazy. Pt reports smoking cannabis daily and using mainly high concentration of THC cannabis as she states it gives me energy. She denies any other substances. At some point, she asked this script writer if I had heard that. When asked what exactly, she states, maybe nothing. She denies SI/HI. Past Psychiatric History: Inpatient: none OP: none Suicide attempts: none Past medication trials: none Medical Evaluation Reviewed: Yes [facility] Family History: none Social History: Pt lives with parents. She has total of 3 siblings- 2 older and one younger. She completed high school. She works as [employer] and has another job at [employer] that she impulsively quit last week. Diagnostics Vital Signs (24Hr): Vital Signs - 24 hr 10/30/22 17:21 10/30/22 20:49 10/31/22 12:01 Temperature 97.9 F 97.8 F 98.1 F Pulse Rate 102 H 75 89 Respiratory Rate 16 15 Blood Pressure 95/55 L 110/69 133/63 Pulse Oximetry 99 100 96 Oxygen Delivery Method Room Air Room Air Room Air BMI result Body Mass Index 28.8 Labs Results: 10/29/22 23:29 10/31/22 09:01 Labs: Laboratory Results - last 48 hr 10/29/22 10/29/22 10/29/22 20:45 23:29 23:29 WBC 5.0 RBC 4.64 Hgb 13.7 Hct 39.4 MCV 84.9 MCH 29.5 MCHC 34.8 RDW 12.2 Plt Count 261 MPV 10.3 Immature Gran % (Auto) 0.2 Neut % (Auto) 51.6 Lymph % (Auto) 39.2 Branch % (Auto) 8.4 Eos % (Auto) 0.4 Baso % (Auto) 0.2 Lymph # (Auto) 2.0 Branch # (Auto) 0.4 Eos # (Auto) 0.0 Baso # (Auto) 0.0 Abs Immat Gran (auto) 0.01 Absolute Neuts (auto) 2.6 Absolute Nucleated RBC 0.000 Nucleated RBC % (auto) 0.0 Smear Tech's Comments VERIFIED Sodium 140 Potassium 3.9 Chloride 108 Carbon Dioxide 21 L Anion Gap 15 BUN 10 Creatinine 0.74 Estim Creat Clear Calc 126.2 Estimated GFR > 60 Random Glucose 99 Fasting Glucose Estimat Average Glucose Hemoglobin A1c % Calcium 9.2 Total Bilirubin 0.4 AST 29 ALT 25 Alkaline Phosphatase 65 Total Protein 7.8 Albumin 4.7 Triglycerides Cholesterol LDL Cholesterol, Calc HDL Cholesterol Folate TSH Urine Color Urine Appearance Urine pH Ur Specific [place] Urine Protein Urine Glucose (UA) Urine Ketones Urine Blood Urine Nitrite Ur Leukocyte Esterase Urine RBC Urine WBC Ur Squamous Epith Cells Urine Bacteria Hyaline Casts Urine Test Salicylates < 5.0 L Urine Opiates Screen Urine Fentanyl Screen Acetaminophen < 1 Ur Barbiturates Screen Ur Phencyclidine Scrn Ur Amphetamines Screen U Benzodiazepines Scrn Urine Cocaine Screen U Marijuana (THC) Screen Ethyl Alcohol COVID-19 (INOCENTE) Negative COVID-19 Clin Com See Note 12/10/29/22 10/29/22 23:29 23:29 23:36 WBC RBC Hgb Hct MCV MCH MCHC RDW Plt Count MPV Immature Gran % (Auto) Neut % (Auto) Lymph % (Auto) Branch % (Auto) Eos % (Auto) Baso % (Auto) Lymph # (Auto) Branch # (Auto) Eos # (Auto) Baso # (Auto) Abs Immat Gran (auto) Absolute Neuts (auto) Absolute Nucleated RBC Nucleated RBC % (auto) Smear Tech's Comments Sodium Potassium Chloride Carbon Dioxide Anion Gap BUN Creatinine Estim Creat Clear Calc Estimated GFR Random Glucose Fasting Glucose Estimat Average Glucose Hemoglobin A1c % Calcium Total Bilirubin AST ALT Alkaline Phosphatase Total Protein Albumin Triglycerides Cholesterol LDL Cholesterol, Calc HDL Cholesterol Folate TSH 0.91 Urine Color Yellow Urine Appearance Clear Urine pH 7.0 Ur Specific [place] 1.010 Urine Protein Negative Urine Glucose (UA) Negative Urine Ketones 15 Urine Blood Moderate (2+) H Urine Nitrite Negative Ur Leukocyte Esterase Moderate (2+) H Urine RBC 0-2 Urine WBC 11-20 H Ur Squamous Epith Cells 3-5 Urine Bacteria Trace Hyaline Casts 0-2 Urine Test Salicylates Urine Opiates Screen Urine Fentanyl Screen Acetaminophen Ur Barbiturates Screen Ur Phencyclidine Scrn Ur Amphetamines Screen U Benzodiazepines Scrn Urine Cocaine Screen U Marijuana (THC) Screen Ethyl Alcohol < 10 COVID-19 (INOCENTE) COVID-19 Clin Com 10/29/22 10/29/22 10/31/22 23:36 23:36 09:01 WBC RBC Hgb Hct MCV MCH MCHC RDW Plt Count MPV Immature Gran % (Auto) Neut % (Auto) Lymph % (Auto) Branch % (Auto) Eos % (Auto) Baso % (Auto) Lymph # (Auto) Branch # (Auto) Eos # (Auto) Baso # (Auto) Abs Immat Gran (auto) Absolute Neuts (auto) Absolute Nucleated RBC Nucleated RBC % (auto) Smear Tech's Comments Sodium 139 Potassium 4.1 Chloride 106 Carbon Dioxide 24 Anion Gap 13 BUN 8 L Creatinine 0.82 Estim Creat Clear Calc 113.9 Estimated GFR > 60 Random Glucose Fasting Glucose 91 Estimat Average Glucose Hemoglobin A1c % Calcium 9.6 Total Bilirubin AST 36 H ALT 38 H Alkaline Phosphatase 67 Total Protein 8.1 H Albumin 4.8 Triglycerides 75 Cholesterol 135 LDL Cholesterol, Calc 82 HDL Cholesterol 38 Folate TSH 0.50 Urine Color Urine Appearance Urine pH Ur Specific [place] Urine Protein Urine Glucose (UA) Urine Ketones Urine Blood Urine Nitrite Ur Leukocyte Esterase Urine RBC Urine WBC Ur Squamous Epith Cells Urine Bacteria Hyaline Casts Urine Test NEGATIVE Salicylates Urine Opiates Screen Not Detected Urine Fentanyl Screen Not Detected Acetaminophen Ur Barbiturates Screen Not Detected Ur Phencyclidine Scrn Not Detected Ur Amphetamines Screen Not Detected U Benzodiazepines Scrn Not Detected Urine Cocaine Screen Not Detected U Marijuana (THC) Screen POSITIVE H Ethyl Alcohol COVID-19 (INOCENTE) COVID-19 [employer] 10/31/22 10/31/22 09:01 09:01 WBC RBC Hgb Hct MCV MCH MCHC RDW Plt Count MPV Immature Gran % (Auto) Neut % (Auto) Lymph % (Auto) Branch % (Auto) Eos % (Auto) Baso % (Auto) Lymph # (Auto) Branch # (Auto) Eos # (Auto) Baso # (Auto) Abs Immat Gran (auto) Absolute Neuts (auto) Absolute Nucleated RBC Nucleated RBC % (auto) Smear Tech's Comments Sodium Potassium Chloride Carbon Dioxide Anion Gap BUN Creatinine Estim Creat Clear Calc Estimated GFR Random Glucose Fasting Glucose Estimat Average Glucose 91 Hemoglobin A1c % 4.8 Calcium Total Bilirubin AST ALT Alkaline Phosphatase Total Protein Albumin Triglycerides Cholesterol LDL Cholesterol, Calc HDL Cholesterol Folate 10.9 TSH Urine Color Urine Appearance Urine pH Ur Specific [place] Urine Protein Urine Glucose (UA) Urine Ketones Urine Blood Urine Nitrite Ur Leukocyte Esterase Urine RBC Urine WBC Ur Squamous Epith Cells Urine Bacteria Hyaline Casts Urine Test Salicylates Urine Opiates Screen Urine Fentanyl Screen Acetaminophen Ur Barbiturates Screen Ur Phencyclidine Scrn Ur Amphetamines Screen U Benzodiazepines Scrn Urine Cocaine Screen U Marijuana (THC) Screen Ethyl Alcohol COVID-19 (INOCENTE) COVID-19 [employer] Meds/Allergies Meds Home Medications Medication Instructions Recorded Confirmed Type No Known Home Meds 10/29/22 10/29/22 History Allergies Allergies Allergy/AdvReac Type Severity Reaction Status Date / Time No Known Allergies Allergy Verified 10/29/22 20:40 Mental Status Exam Mental Status Exam Narrative: Appearance: cuasually groomed, fair hygiene, in NAD Behavior: cooperative Psychomotor: no overt retardation or agitation noted Speech: clear, pressured and hyperverbal speech, normal tone/rhythm, spontaneous TP: tangential with some flight of ideas TC: wanting to get better, open to treatment Mood: good Affect: dysphoric, labile episodes of crying and then laughing SI: none HI: none AH: residual voices but can't described VH: none Insight/judgment: fair x 2. Memory/cog: alert, oriented x 3. grossly intact to conversational testing. Assessment & Plan Assessment & Plan (1) Bipolar disorder, current episode manic severe with psychotic features: Status: Acute Code(s): F31.2 - Bipolar disorder, current episode manic severe with psychotic features Plan Ms. Carey is a 22 year-old woman brought to [facility] ED by family as pt presented as erratic (not letting family members sleep, accusing them of being against her, quitting her job impulsively, hyperverbal), not sleeping, suspicious towards family members, hearing voices telling her , , . Pt had similar incident back in March of this year. Pt reports using canabis daily, increased use this year. She reports buying ,cannabis with higher concentration of THC. We discussed cannabis fueling underlying predisposition to Bipolar Disorder and manic episode. Most likely this is another manic episode worsen by cannabis rather than a brief cannabis induced psychosis. Utox is positive for cannabis. We discussed risks, benefits and alternative treatment options. PLAN 1. Admit to M3, cv 15 minutes checks for safety 2. start risperidone 0.5mg po BID 3. Lithiun cr 450mg po qhs. 4. aftercare planning. Patient educated on: diagnosis Reason for continued inpatient stay Substantial Risk for: harm to self and inability to function Statement Statement: I have reviewed the history and physical and performed a pertinent examination on my patient. No changes have occurred unless specified. Time Spent With Patient Time: Total time managing care of this patient today ____ minutes.
[2022-10-31 11:52] LABS: Estimated Average Glucose 91 mg/dL; Hemoglobin A1c % 4.8 %
[2022-10-31 12:01] VITALS: BP 133/63; PULSE 89; RESP 15; TEMP 36.7; O2SAT 96
[2022-10-31 12:03] VITALS: BMI 28.8
[2022-10-31 12:25] LABS: Folate 10.9 ng/mL (> or = 4.0)
[2022-10-31 13:06] LABS: Alanine Aminotransferase 33 U/L (0-31); Albumin Level 4.6 g/dL (3.5-5.0); Alkaline Phosphatase 66 U/L (39-117); Anion Gap 16 (12-20); Aspartate Amino Transferase 35 U/L (5-31); Bilirubin Total 0.6 mg/dL (0.0-1.0); Blood Urea Nitrogen 8 mg/dL (9-16); Calcium 9.6 mg/dL (8.4-10.2); Carbon Dioxide 21 mmol/L (22-29); Chloride 107 mmol/L (96-108); Cholesterol 128 mg/dL; Creatinine Clr Calc Pharmacy 112.5; Estimated Glomerular Filt Rate > 60; Glucose Fasting 88 mg/dL (60-99); HDL Cholesterol 35 mg/dL; LDL Cholesterol Calculated 78 mg/dl; Potassium 4.1 mmol/L (3.3-5.1); Sodium 140 mmol/L (135-145); Thyroid Stimulating Hormone 0.58 uIU/mL (0.32-4.0); Total Protein 7.8 g/dL (6.5-8.0); Triglycerides 75 mg/dL
[2022-10-31] MEDS: risperiDONE 0.5 MG TABLET PO ×2 (14:18→21:11)
[2022-10-31] MEDS: Lithium Carbonate ER 450 MG TABLET.ER PO (14:18)
[2022-10-31 18:00] VITALS: RESP 16
[2022-11-01 09:31] VITALS: BP 123/73; PULSE 81; TEMP 36.3; O2SAT 100
[2022-11-01] MEDS: risperiDONE 0.5 MG TABLET PO ×2 (09:42→21:16)
[2022-11-01] MEDS: guaiFENesin 100 MG/5 ML LIQUID PO (09:42)
[2022-11-01] MEDS: Throat Lozenge, Medicated LOZENGE 1 LOZENGE MUCOUS MEM (09:43)
--- NOTE | 2022-11-01 12:01 | P.PNPSI_ITS ---
Subjective Subjective Date of Service: 11/01/22 Reason For Visit: SI Subjective Notes: Conditional Voluntary Interim History: Pt continues to present as dyshoric at times irritable, at times crying. She is asking to be discharged soon. She denies SI/HI. She states at night, voices get worse and reality more blurry. She reports some suspiciousness. She is taking m edications as prescribed. No behavioral concerns. Medication Compliance: Yes Review of Systems Review of Systems Yes all other systems are reviewed and are negative Constitutional: Reports no additional constitutional complaints Eyes: Reports no additional eye complaints Reports system reviewed and no additional complaints, except as documented Cardiovascular: Reports no additional cardiovascular complaints Respiratory: Reports no additional respiratory complaints Mental Status Exam Mental Status Exam Narrative: Appearance: cuasually groomed, fair hygiene, in NAD Behavior: cooperative Psychomotor: no overt retardation or agitation noted Speech: clear, pressured and hyperverbal speech, normal tone/rhythm, spontaneous TP: tangential with some flight of ideas TC: wanting to get better, open to treatment Mood: good Affect: dysphoric, labile episodes of crying and then laughing SI: none HI: none AH: residual voices but can't described VH: none Insight/judgment: fair x 2. Memory/cog: alert, oriented x 3. grossly intact to conversational testing. Diagnostics Vital Signs (24Hr): Vital Signs - 24 hr 11/01/22 09:31 11/01/22 21:13 Temperature 97.4 F 97.7 F Pulse Rate 81 100 Blood Pressure 123/73 117/59 L Pulse Oximetry 100 100 Oxygen Delivery Method Room Air Room Air BMI result Body Mass Index 28.8 Labs Results: 10/29/22 23:29 10/31/22 09:01 Labs: Laboratory Results - last 48 hr 10/31/22 10/31/22 10/31/22 09:01 09:01 09:01 Sodium 140 Potassium 4.1 Chloride 107 Carbon Dioxide 21 L Anion Gap 16 BUN 8 L Creatinine 0.82 Estim Creat Clear Calc 112.5 Estimated GFR > 60 Fasting Glucose 88 Estimat Average Glucose 91 Hemoglobin A1c % 4.8 Calcium 9.6 Total Bilirubin 0.6 AST 35 H ALT 33 H Alkaline Phosphatase 66 Total Protein 7.8 Albumin 4.6 Triglycerides 75 Cholesterol 128 LDL Cholesterol, Calc 78 HDL Cholesterol 35 Folate 10.9 TSH 0.58 Medications Medications Current Medications Acetaminophen (Acetaminophen 325 Mg Tablet) 650 mg PO Q6H PRN PRN Reason: Headache/Pain Mild Scale (1-3) Al Hydroxide/Mg Hydroxide (Magnesium Hydrox/Alum Hydrox 30 Ml Oral.Susp) 30 ml PO Q6H PRN PRN Reason: Heartburn/Nausea Benzocaine (Throat Lozenge, Medicated Lozenge) 1 lozenge MUCOUS MEM Q2H PRN PRN Reason: Sore Throat Last Admin: 11/01/22 09:43 Dose: 1 lozenge Guaifenesin (Guaifenesin 100 Mg/5 Ml Liquid) 5 ml PO Q4H PRN PRN Reason: Cough Last Admin: 11/01/22 09:42 Dose: 5 ml Hydroxyzine HCl (Hydroxyzine Hcl 25 Mg Tablet) 25 mg PO Q6H PRN PRN Reason: Anxiety Last Admin: 11/01/22 22:43 Dose: 25 mg [place] Carbonate ([place] Carbonate Er 450 Mg Tablet.Er) 450 mg PO BEDTIME RAJ Last Admin: 11/01/22 21:26 Dose: 450 mg Magnesium Hydroxide (Milk Of Magnesia 30 Ml Oral.Susp) 30 ml PO DAILY PRN PRN Reason: Constipation Last Admin: 11/01/22 21:17 Dose: 30 ml Risperidone (Risperidone 0.5 Mg Tablet) 0.5 mg PO BID RAJ Last Admin: 11/01/22 21:16 Dose: 0.5 mg Trazodone HCl (Trazodone Hcl 50 Mg Tablet) 50 mg PO BEDTIME PRN PRN Reason: Insomnia Last Admin: 10/30/22 22:08 Dose: 50 mg Allergies Allergies Allergy/AdvReac Type Severity Reaction Status Date / Time No Known Allergies Allergy Verified 10/29/22 20:40 Assessment & Plan Assessment & Plan (1) Bipolar disorder, current episode manic severe with psychotic features: Status: Acute Code(s): F31.2 - Bipolar disorder, current episode manic severe with psychotic features Plan Ms. Carey is a 22 year-old woman brought to [facility] ED by family as pt presented as erratic (not letting family members sleep, accusing them of being against her, quitting her job impulsively, hyperverbal), not sleeping, suspicious towards family members, hearing voices telling her , , . Pt had similar incident back in March of this year. Pt reports using canabis daily, increased use this year. She reports buying ,cannabis with higher concentration of THC. We discussed cannabis fueling underlying predisposition to Bipolar Disorder and manic episode. Most likely this is another manic episode worsen by cannabis rather than a brief cannabis induced psychosis. Utox is positive for cannabis. We discussed risks, benefits and alternative treatment options. PLAN 1. Admit to M3, cv 15 minutes checks for safety 2. start risperidone 0.5mg po BID 3. Lithiun cr 450mg po qhs. 4. aftercare planning. 11/01 increase risperidone to 1mg po BID, increase lithium to 900mg po qhs. with plan to dc on Friday. I spent minutes with the patient and/or on the patient floor today, greater than?50% of which was spent counseling/coordinating care. Reason for contiued inpatient stay Substantial Risk for: inability to function Time Spent With Patient Time: Total time managing care of this patient today ____ minutes.
[2022-11-01] MEDS: hydrOXYzine HCL 25 MG TABLET PO ×2 (16:39→22:43)
[2022-11-01 21:13] VITALS: BP 117/59; PULSE 100; TEMP 36.5; O2SAT 100
[2022-11-01] MEDS: Milk of Magnesia 30 ML ORAL.SUSP PO (21:17)
[2022-11-01] MEDS: Lithium Carbonate ER 450 MG TABLET.ER PO (21:26)
[2022-11-02 09:15] VITALS: BP 109/61; PULSE 93; TEMP 36.6; O2SAT 100
[2022-11-02] MEDS: risperiDONE 1 MG TABLET PO (09:34)
--- NOTE | 2022-11-02 14:25 | PC.NURSE ---
Addendum entered by So Barkley RN 11/02/22 17:14: Reassessed vitals at 1530 per Virgie Sheppard's recommendations. 103/57, HR 66, RR 17, O2 100%. Pt reports feeling better. Original Note: Pt stated she felt dizzy and short of breath. RN assessed vitals, BP 92/52, HR 88, O2 98% Temp 97.6 RR 18. Encouraged patient to drink fluids. Kae Sheppard aware.
--- NOTE | 2022-11-02 17:35 | HO.PSYCHPN ---
Subjective Subjective Date of Service: 11/02/22 Reason For Visit: SI Interim History: she says she's doing better and says she no longer sad and feels ready to go. She denies any AVH and says she never had any. Denies SI. Pt says no side-effects from Risperdal Review of Systems Review of Systems Yes all other systems are reviewed and are negative Constitutional: Reports no additional constitutional complaints Eyes: Reports no additional eye complaints Reports system reviewed and no additional complaints, except as documented Cardiovascular: Reports no additional cardiovascular complaints Respiratory: Reports no additional respiratory complaints Mental Status Exam Mental Status Exam Narrative: Pt is alert and oriented; behavior is cooperative, friendly and calm; patient is not in distress; well dressed in casual attire with good hygiene; mood is described as better and affect congruent, bright, calm; eye contact appropriate; Speech is normal rate, volume and prosody and increased in amount; no psychomotor agitation/retardation present; thought process is organized and goal directed; Thought content is on discharge; otherwise pertinent to relevant topics and without any delusional content, paranoid ideations or grandiosity; denies any SI/HI/AVH Patients insight and judgment appear intact. Diagnostics Vital Signs (24Hr): Vital Signs - 24 hr 11/01/22 21:13 11/02/22 09:15 Temperature 97.7 F 97.9 F Pulse Rate 100 93 Blood Pressure 117/59 L 109/61 Pulse Oximetry 100 100 Oxygen Delivery Method Room Air Room Air BMI result Body Mass Index 28.8 Labs 10/29/22 23:29 10/31/22 09:01 Medications Medications Current Medications Acetaminophen (Acetaminophen 325 Mg Tablet) 650 mg PO Q6H PRN PRN Reason: Headache/Pain Mild Scale (1-3) Al Hydroxide/Mg Hydroxide (Magnesium Hydrox/Alum Hydrox 30 Ml Oral.Susp) 30 ml PO Q6H PRN PRN Reason: Heartburn/Nausea Benzocaine (Throat Lozenge, Medicated Lozenge) 1 lozenge MUCOUS MEM Q2H PRN PRN Reason: Sore Throat Last Admin: 11/01/22 09:43 Dose: 1 lozenge Guaifenesin (Guaifenesin 100 Mg/5 Ml Liquid) 5 ml PO Q4H PRN PRN Reason: Cough Last Admin: 11/01/22 09:42 Dose: 5 ml Hydroxyzine HCl (Hydroxyzine Hcl 25 Mg Tablet) 25 mg PO Q6H PRN PRN Reason: Anxiety Last Admin: 11/01/22 22:43 Dose: 25 mg [place] Carbonate ([place] Carbonate Er 450 Mg Tablet.Er) 900 mg PO BEDTIME RAJ Magnesium Hydroxide (Milk Of Magnesia 30 Ml Oral.Susp) 30 ml PO DAILY PRN PRN Reason: Constipation Last Admin: 11/01/22 21:17 Dose: 30 ml Risperidone (Risperidone 0.5 Mg Tablet) 0.5 mg PO BEDTIME RAJ Risperidone (Risperidone 1 Mg Tablet) 1 mg PO DAILY RAJ Trazodone HCl (Trazodone Hcl 50 Mg Tablet) 50 mg PO BEDTIME PRN PRN Reason: Insomnia Last Admin: 10/30/22 22:08 Dose: 50 mg Allergies Allergies Allergy/AdvReac Type Severity Reaction Status Date / Time No Known Allergies Allergy Verified 10/29/22 20:40 Assessment & Plan Assessment & Plan (1) Bipolar disorder, current episode manic severe with psychotic features: Status: Acute Code(s): F31.2 - Bipolar disorder, current episode manic severe with psychotic features Plan Ms. Carey is a 22 year-old woman [place] [facility] family as pt presented as erratic (not letting family members sleep, accusing them of being against her, quitting her job impulsively, hyperverbal), not sleeping, suspicious towards family members, hearing voices telling her , , . Pt had similar incident back in March of this year. Pt reports using canabis daily, increased use this year. She reports buying ,cannabis with higher concentration of THC. We discussed cannabis fueling underlying predisposition to Bipolar Disorder and manic episode. Most likely this is another manic episode worsen by cannabis rather than a brief cannabis induced psychosis. Utox is positive for cannabis. We discussed risks, benefits and alternative treatment options. PLAN 1. Admit to M3, cv 15 minutes checks for safety 2. start risperidone 0.5mg po BID 3. Lithiun cr 450mg po qhs. 4. aftercare planning. 11/01 increase risperidone to 1mg po BID, increase lithium to 900mg po qhs. with plan to dc on Friday. I spent minutes with the patient and/or on the patient floor today, greater than?50% of which was spent counseling/coordinating care. Reason for contiued inpatient stay Substantial Risk for: inability to function Time Spent With Patient Time: Total time managing care of this patient today ____ minutes.
[2022-11-02] MEDS: Lithium Carbonate ER 450 MG TABLET.ER 900 MG PO (19:45)
[2022-11-02] MEDS: risperiDONE 0.5 MG TABLET PO (19:45)
[2022-11-02 19:49] VITALS: BP 119/58; PULSE 86; RESP 18; TEMP 36.6; O2SAT 100
[2022-11-03 07:56] VITALS: BP 108/52; PULSE 81; TEMP 36.3; O2SAT 100
[2022-11-03] MEDS: risperiDONE 1 MG TABLET PO (08:35)
--- NOTE | 2022-11-03 10:52 | HO.PSYCHPN ---
Subjective Subjective Date of Service: 11/03/22 Reason For Visit: SI Interim History: pt meeting with cousin; she says she's doing better and says she no longer sad and feels ready to go. She denies any AVH and says she never had any. Denies SI. Pt says no side-effects from Risperdal Mental Status Exam Mental Status Exam Narrative: Pt is alert and oriented; behavior is cooperative, friendly and calm; patient is not in distress; well dressed in casual attire with good hygiene; mood is described as better and affect congruent, bright, calm; eye contact appropriate; Speech is normal rate, volume and prosody and not pressured; no psychomotor agitation/retardation present; thought process is organized and goal directed; Thought content is on discharge; otherwise pertinent to relevant topics and without any delusional content, paranoid ideations or grandiosity; denies any SI/HI. There is no evidence of perceptual disturbance. Patients insight and judgment appear intact. Diagnostics Vital Signs (24Hr): Vital Signs - 24 hr 11/02/22 19:49 11/03/22 07:56 Temperature 97.8 F 97.4 F Pulse Rate 86 81 Respiratory Rate 18 Blood Pressure 119/58 L 108/52 L Pulse Oximetry 100 100 Oxygen Delivery Method Room Air Room Air BMI result Body Mass Index 28.8 Labs Results: 10/29/22 23:29 10/31/22 09:01 Medications Medications Current Medications Acetaminophen (Acetaminophen 325 Mg Tablet) 650 mg PO Q6H PRN PRN Reason: Headache/Pain Mild Scale (1-3) Al Hydroxide/Mg Hydroxide (Magnesium Hydrox/Alum Hydrox 30 Ml Oral.Susp) 30 ml PO Q6H PRN PRN Reason: Heartburn/Nausea Benzocaine (Throat Lozenge, Medicated Lozenge) 1 lozenge MUCOUS MEM Q2H PRN PRN Reason: Sore Throat Last Admin: 11/01/22 09:43 Dose: 1 lozenge Guaifenesin (Guaifenesin 100 Mg/5 Ml Liquid) 5 ml PO Q4H PRN PRN Reason: Cough Last Admin: 11/01/22 09:42 Dose: 5 ml Hydroxyzine HCl (Hydroxyzine Hcl 25 Mg Tablet) 25 mg PO Q6H PRN PRN Reason: Anxiety Last Admin: 11/01/22 22:43 Dose: 25 mg [place] Carbonate ([place] Carbonate Er 450 Mg Tablet.Er) 900 mg PO BEDTIME RAJ Last Admin: 11/02/22 19:45 Dose: 900 mg Magnesium Hydroxide (Milk Of Magnesia 30 Ml Oral.Susp) 30 ml PO DAILY PRN PRN Reason: Constipation Last Admin: 11/01/22 21:17 Dose: 30 ml Risperidone (Risperidone 0.5 Mg Tablet) 0.5 mg PO BEDTIME RAJ Last Admin: 11/02/22 19:45 Dose: 0.5 mg Risperidone (Risperidone 1 Mg Tablet) 1 mg PO DAILY RAJ Last Admin: 11/03/22 08:35 Dose: 1 mg Trazodone HCl (Trazodone Hcl 50 Mg Tablet) 50 mg PO BEDTIME PRN PRN Reason: Insomnia Last Admin: 10/30/22 22:08 Dose: 50 mg Allergies Allergies Allergy/AdvReac Type Severity Reaction Status Date / Time No Known Allergies Allergy Verified 10/29/22 20:40 Assessment & Plan Assessment & Plan (1) Bipolar disorder, current episode manic severe with psychotic features: Status: Acute Code(s): F31.2 - Bipolar disorder, current episode manic severe with psychotic features Plan Ms. Carey is a 22 year-old woman brought to [facility] [place] by family as pt presented as erratic (not letting family members sleep, accusing them of being against her, quitting her job impulsively, hyperverbal), not sleeping, suspicious towards family members, hearing voices telling her , , . Pt had similar incident back in March of this year. Pt reports using canabis daily, increased use this year. She reports buying ,cannabis with higher concentration of THC. We discussed cannabis fueling underlying predisposition to Bipolar Disorder and manic episode. Most likely this is another manic episode worsen by cannabis rather than a brief cannabis induced psychosis. Utox is positive for cannabis. We discussed risks, benefits and alternative treatment options. PLAN 1. Admit to M3, cv 15 minutes checks for safety 2. start risperidone 0.5mg po BID 3. Lithiun cr 450mg po qhs. 4. aftercare planning. 11/01 increase risperidone to 1mg po BID, increase lithium to 900mg po qhs. with plan to dc on Friday. 11/03 no change to current tx plan I spent minutes with the patient and/or on the patient floor today, greater than?50% of which was spent counseling/coordinating care. Patient educated on: diagnosis and medication risk/benefits Informed Consent: understands and further education needed Reason for contiued inpatient stay Substantial Risk for: med/psych decompensation Time Spent With Patient Time: Total time managing care of this patient today ____ minutes.
[2022-11-03 17:58] LABS: Influenza A PCR NEGATIVE (Negative); Influenza B PCR NEGATIVE (Negative); Resp Syncy Virus RNA Qual PCR NEGATIVE (Negative); SARS COV2 PCR INHOUSE NEGATIVE (Negative)
[2022-11-03 18:00] VITALS: BP 102/61; PULSE 80; RESP 16; TEMP 36.8; O2SAT 100
[2022-11-03] MEDS: risperiDONE 0.5 MG TABLET PO (20:08)
[2022-11-03] MEDS: Lithium Carbonate ER 450 MG TABLET.ER 900 MG PO (20:08)
[2022-11-03] MEDS: Acetaminophen 325 MG TABLET 650 MG PO (21:57)
[2022-11-04 08:30] VITALS: BP 108/60; PULSE 92; RESP 18; TEMP 36.4; O2SAT 97
[2022-11-04 08:57] LABS: Lithium 0.83 mmol/L (0.60-1.20)
[2022-11-04] MEDS: risperiDONE 1 MG TABLET PO (09:03)
--- NOTE | 2022-11-04 10:45 | PM.PSYDC ---
DS: Providers Provider Date of Service: 11/04/22 Date of admission: 10/30/22 14:34 Primary care physician: Unknown Physician DS: Diagnosis Discharge Diagnosis (1) Bipolar disorder, current episode manic severe with psychotic features: Status: Acute DS: Medications Discharge Medications Home Medications: Previous Rx's Medication Instructions Recorded lithium carbonate 450 mg 900 mg PO BEDTIME 30 days #60 tabs 11/04/22 tablet,extended release risperidone 0.5 mg tablet 1.5 mg PO BEDTIME 30 days #90 tabs 11/04/22 Mental Status Exam Mental Status Exam Narrative: Pt is alert and oriented; behavior is cooperative, friendly and calm; patient is not in distress; well dressed in casual attire with good hygiene; mood is described as better and affect congruent, bright, calm; eye contact appropriate; Speech is normal rate, volume and prosody and increased in amount; no psychomotor agitation/retardation present; thought process is organized and goal directed; Thought content is on discharge; otherwise pertinent to relevant topics and without any delusional content, paranoid ideations or grandiosity; denies any SI/HI/AVH Patients insight and judgment appear intact. Data Data Completed and Pending Completed studies during hospitalization [Text1]: 10/29/22 10/29/22 10/29/22 20:45 23:29 23:29 WBC 5.0 RBC 4.64 Hgb 13.7 Hct 39.4 MCV 84.9 MCH 29.5 MCHC 34.8 RDW 12.2 Plt Count 261 MPV 10.3 Immature Gran % (Auto) 0.2 Neut % (Auto) 51.6 Lymph % (Auto) 39.2 [place] % (Auto) 8.4 Eos % (Auto) 0.4 Baso % (Auto) 0.2 Lymph # (Auto) 2.0 [place] # (Auto) 0.4 Eos # (Auto) 0.0 Baso # (Auto) 0.0 Abs Immat Gran (auto) 0.01 Absolute Neuts (auto) 2.6 Absolute Nucleated RBC 0.000 Nucleated RBC % (auto) 0.0 Smear Tech's Comments VERIFIED Sodium 140 Potassium 3.9 Chloride 108 Carbon Dioxide 21 L Anion Gap 15 BUN 10 Creatinine 0.74 Estim Creat Clear Calc 126.2 Estimated GFR > 60 Random Glucose 99 Fasting Glucose Estimat Average Glucose Hemoglobin A1c % Calcium 9.2 Total Bilirubin 0.4 AST 29 ALT 25 Alkaline Phosphatase 65 C-React Prot High Sens Total Protein 7.8 Albumin 4.7 Triglycerides Cholesterol LDL Cholesterol, Calc HDL Cholesterol Folate TSH Urine Color Urine Appearance Urine pH Ur Specific [place] Urine Protein Urine Glucose (UA) Urine Ketones Urine Blood Urine Nitrite Ur Leukocyte Esterase Urine RBC Urine WBC Ur Squamous Epith Cells Urine Bacteria Hyaline Casts Urine Test Salicylates < 5.0 L Urine Opiates Screen Urine Fentanyl Screen Acetaminophen < 1 Ur Barbiturates Screen Ur Phencyclidine Scrn Ur Amphetamines Screen U Benzodiazepines Scrn [place] Urine Cocaine Screen U Marijuana (THC) Screen Ethyl Alcohol COVID-19 (INOCENTE) Negative COVID-19 Clin Com See Note Influenza Type A (PCR) Influenza Type B (PCR) RSV RNA Qual (PCR) SARS-CoV-2 RNA (RT-PCR) 10/29/22 10/29/22 10/29/22 23:29 23:29 23:36 WBC RBC Hgb Hct MCV MCH MCHC RDW Plt Count MPV Immature Gran % (Auto) Neut % (Auto) Lymph % (Auto) [place] % (Auto) Eos % (Auto) Baso % (Auto) Lymph # (Auto) [place] # (Auto) Eos # (Auto) Baso # (Auto) Abs Immat Gran (auto) Absolute Neuts (auto) Absolute Nucleated RBC Nucleated RBC % (auto) Smear Tech's Comments Sodium Potassium Chloride Carbon Dioxide Anion Gap BUN Creatinine Estim Creat Clear Calc Estimated GFR Random Glucose Fasting Glucose Estimat Average Glucose Hemoglobin A1c % Calcium Total Bilirubin AST ALT Alkaline Phosphatase C-React Prot High Sens Total Protein Albumin Triglycerides Cholesterol LDL Cholesterol, Calc HDL Cholesterol Folate TSH 0.91 Urine Color Yellow Urine Appearance Clear Urine pH 7.0 Ur Specific [place] 1.010 Urine Protein Negative Urine Glucose (UA) Negative Urine Ketones 15 Urine Blood Moderate (2+) H Urine Nitrite Negative Ur Leukocyte Esterase Moderate (2+) H Urine RBC 0-2 Urine WBC 11-20 H Ur Squamous Epith Cells 3-5 Urine Bacteria Trace Hyaline Casts 0-2 Urine Test Salicylates Urine Opiates Screen Urine Fentanyl Screen Acetaminophen Ur Barbiturates Screen Ur Phencyclidine Scrn Ur Amphetamines Screen U Benzodiazepines Scrn [place] Urine Cocaine Screen U Marijuana (THC) Screen Ethyl Alcohol < 10 COVID-19 ([facility]E) COVID-19 Clin Com Influenza Type A (PCR) Influenza Type B (PCR) RSV RNA Qual (PCR) SARS-CoV-2 RNA (RT-PCR) 10/29/22 10/29/22 10/31/22 23:36 23:36 09:01 WBC RBC Hgb Hct MCV MCH MCHC RDW Plt Count MPV Immature Gran % (Auto) Neut % (Auto) Lymph % (Auto) [place] % (Auto) Eos % (Auto) Baso % (Auto) Lymph # (Auto) [place] # (Auto) Eos # (Auto) Baso # (Auto) Abs Immat Gran (auto) Absolute Neuts (auto) Absolute Nucleated RBC Nucleated RBC % (auto) Smear Tech's Comments Sodium 140 Potassium 4.1 Chloride 107 Carbon Dioxide 21 L Anion Gap 16 BUN 8 L Creatinine 0.82 Estim Creat Clear Calc 112.5 Estimated GFR > 60 Random Glucose Fasting Glucose 88 Estimat Average Glucose Hemoglobin A1c % Calcium 9.6 Total Bilirubin 0.6 AST 35 H ALT 33 H Alkaline Phosphatase 66 C-React Prot High Sens Total Protein 7.8 Albumin 4.6 Triglycerides 75 Cholesterol 128 LDL Cholesterol, Calc 78 HDL Cholesterol 35 Folate TSH 0.58 Urine Color Urine Appearance Urine pH Ur Specific [place] Urine Protein Urine Glucose (UA) Urine Ketones Urine Blood Urine Nitrite Ur Leukocyte Esterase Urine RBC Urine WBC Ur Squamous Epith Cells Urine Bacteria Hyaline Casts Urine Test NEGATIVE Salicylates Urine Opiates Screen Not Detected Urine Fentanyl Screen Not Detected Acetaminophen Ur Barbiturates Screen Not Detected Ur Phencyclidine Scrn Not Detected Ur Amphetamines Screen Not Detected U Benzodiazepines Scrn Not Detected [place] Urine Cocaine Screen Not Detected U Marijuana (THC) Screen POSITIVE H Ethyl Alcohol COVID-19 ([facility]E) COVID-19 Clin Com Influenza Type A (PCR) Influenza Type B (PCR) RSV RNA Qual (PCR) SARS-CoV-2 RNA (RT-PCR) 10/31/22 10/31/22 11/03/22 09:01 09:01 17:08 WBC RBC Hgb Hct MCV MCH MCHC RDW Plt Count MPV Immature Gran % (Auto) Neut % (Auto) Lymph % (Auto) [place] % (Auto) Eos % (Auto) Baso % (Auto) Lymph # (Auto) [place] # (Auto) Eos # (Auto) Baso # (Auto) Abs Immat Gran (auto) Absolute Neuts (auto) Absolute Nucleated RBC Nucleated RBC % (auto) Smear Tech's Comments Sodium Potassium Chloride Carbon Dioxide Anion Gap BUN Creatinine Estim Creat Clear Calc Estimated GFR Random Glucose Fasting Glucose Estimat Average Glucose 91 Hemoglobin A1c % 4.8 Calcium Total Bilirubin AST ALT Alkaline Phosphatase C-React Prot High Sens Total Protein Albumin Triglycerides Cholesterol LDL Cholesterol, Calc HDL Cholesterol Folate 10.9 TSH Urine Color Urine Appearance Urine pH Ur Specific [place] Urine Protein Urine Glucose (UA) Urine Ketones Urine Blood Urine Nitrite Ur Leukocyte Esterase Urine RBC Urine WBC Ur Squamous Epith Cells Urine Bacteria Hyaline Casts Urine Test Salicylates Urine Opiates Screen Urine Fentanyl Screen Acetaminophen Ur Barbiturates Screen Ur Phencyclidine Scrn Ur Amphetamines Screen U Benzodiazepines Scrn [place] Urine Cocaine Screen U Marijuana (THC) Screen Ethyl Alcohol COVID-19 (INOCENTE) COVID-19 Clin Com Influenza Type A (PCR) NEGATIVE Influenza Type B (PCR) NEGATIVE RSV RNA Qual (PCR) NEGATIVE SARS-CoV-2 RNA (RT-PCR) NEGATIVE 11/04/22 11/04/22 08:10 08:10 WBC RBC Hgb Hct MCV MCH MCHC RDW Plt Count MPV Immature Gran % (Auto) Neut % (Auto) Lymph % (Auto) [place] % (Auto) Eos % (Auto) Baso % (Auto) Lymph # (Auto) [place] # (Auto) Eos # (Auto) Baso # (Auto) Abs Immat Gran (auto) Absolute Neuts (auto) Absolute Nucleated RBC Nucleated RBC % (auto) Smear Tech's Comments Sodium Potassium Chloride Carbon Dioxide Anion Gap BUN Creatinine Estim Creat Clear Calc Estimated GFR Random Glucose Fasting Glucose Estimat Average Glucose Hemoglobin A1c % Calcium Total Bilirubin AST ALT Alkaline Phosphatase C-React Prot High Sens Pending Total Protein Albumin Triglycerides Cholesterol LDL Cholesterol, Calc HDL Cholesterol Folate TSH Urine Color Urine Appearance Urine pH Ur Specific [place] Urine Protein Urine Glucose (UA) Urine Ketones Urine Blood Urine Nitrite Ur Leukocyte Esterase Urine RBC Urine WBC Ur Squamous Epith Cells Urine Bacteria Hyaline Casts Urine Test Salicylates Urine Opiates Screen Urine Fentanyl Screen Acetaminophen Ur Barbiturates Screen Ur Phencyclidine Scrn Ur Amphetamines Screen U Benzodiazepines Scrn [place] 0.83 Urine Cocaine Screen U Marijuana (THC) Screen Ethyl Alcohol COVID-19 (INOCENTE) COVID-19 Clin Com Influenza Type A (PCR) Influenza Type B (PCR) RSV RNA Qual (PCR) SARS-CoV-2 RNA (RT-PCR) DS: Summary Hospital Course Hospital Course: per 10/31 admission note: Ms. Carey is a 22 year-old woman who was brought by parents [place] [facility] [place] patient presenting as suspicious, intrusive to family members, not sleeping, hyperverbal, hearing voices telling her to , , , suspicious of family members for the past 3 days and verbally abusive towards them which is not characteristic of her. In the ED, his utox was positive for cannabis. On the unit, this functional tester typewriters met with patient and her parents. Pt presents as hyperverbal, at times laughing others crying. She reports she noticed something was off but states she does not remember all things she said and did to her family. Pt reports she felt like having a lot of energy. She states she also impulsively quit her job at [employer], which she states now in retrospect was not a good decision. Pt endorse poor concentration, lashing out on people and not having control over what she says. Pt's mother reports that pt was asking her to pray with her but then was very suspicious of her family and accused them of being the devil. Mother reports pt was yelling at parents and siblings, runing around the house, irritable when redirected or asked about her behavior. Today, Pt reports feeling worried about her mental health and states she is open to receive treatment. Pt reports hearing some noises, but also states it may be nothing I don't want people to think I am crazy. Pt reports smoking cannabis daily and using mainly high concentration of THC cannabis as she states it gives me energy. She denies any other substances. At some point, she asked this functional tester typewriters if I had heard that. When asked what exactly, she states, maybe nothing. She denies SI/HI. Past Psychiatric History: Inpatient: none OP: none Suicide attempts: none Past medication trials: none Medical Evaluation Reviewed: Yes PMFSH Family History: none Social History: Pt lives with parents. She has total of 3 siblings- 2 older and one younger. She completed high school. She works as [employer] and has another job at [employer] that she impulsively quit last week. Precis: Ms. Carey is a 22 year-old woman brought [place] [facility] [place] family as pt presented as erratic (not letting family members sleep, accusing them of being against her, quitting her job impulsively, hyperverbal), not sleeping, suspicious towards family members, hearing voices telling her , , . Pt had similar incident back in March of this year. Pt reports using canabis daily, increased use this year. She reports buying ,cannabis with higher concentration of THC. We discussed cannabis fueling underlying predisposition to Bipolar Disorder and manic episode. Most likely this is another manic episode worsen by cannabis rather than a brief cannabis induced psychosis. Utox is positive for cannabis. We discussed risks, benefits and alternative treatment options. 10/31: start risperidone 0.5mg po BID. [place] cr 450mg po qhs. 11/01 increase risperidone to 1mg po BID, increase lithium to 900mg po qhs. with plan to dc on Friday. 11/03 no change to current tx plan 11/04: still quite loquacious, but improved from admission. lithium 0.83. discharged to outpt care as per plan. Time Spent with Patient Time attestation: Total time managing care of this patient today ____ minutes. Time spent: Greater than 30 minutes Discharge Plan Discharge Anticipated Discharge Date/Time: 11/04/22 12:00 Patient Disposition: Home, Self-Care Discharge Diagnosis: Bipolar I Disorder, MRE Manic Referrals: Psychiatry [Other] (Referral submitted, please follow up for psychiatry appointment) Jossue Higuera MD [Physician] - 1 Week (called and left voicemail, please follow up within one week of discharge.) Discharge Medications: New lithium carbonate 450 mg Tablet Extended Release 900 mg PO BEDTIME 30 Days Qty: 60 0RF risperidone 0.5 mg Tablet 1.5 mg PO BEDTIME 30 Days Qty: 90 0RF Discharge Orders: Discharge Order (Routine); Ordered 11/04/22 Ordered By: Jeremy Mckeon Diet: Advance to usual diet Activity on Discharge: As tolerated Stand Alone Forms: Patient Portal Discharge page, Community Support Care Plan Goals: remain safe and stable in the outpatient treatment setting Health Concerns: none Plan of Treatment: take medications as prescribed, attend appointments as scheduled Assessment: not at imminent risk of harm to self or others Discharge Date/Time: 11/04/22 12:22
[2022-11-06 14:59] LABS: CRP High Sensitivity 1.9 mg/L
== END 2022-11-04 12:22 | disposition home or self-care (01) | DRG 885 ==
LOC: HO.ED 10-30 12:26 → HO.PADLT16 10-30 14:49
PROVIDERS: Psychiatry & Neurology Psychiatry; Admitting Provider Psychiatry & Neurology Psychiatry; Emergency Provider Emergency Medicine Emergency Medical Services; Visit Provider Social Worker
DX: F31.2 Bipolar disorder, current episode manic severe with psychotic features (principal); Z20.822 Contact with and (suspected) exposure to COVID-19; Z79.899 Other long term (current) drug therapy
CPT/HCPCS: 0241U; 36415; 80053; 80061; 80143; 80178; 80179; 80307; 81001; 81025; 82077; 82746; 83036; 84443; 85025; 86141; 87635; 99285